=== PATIENT | female | born 1995 | race Asian ===

== ENCOUNTER → 2019-03-14 | Outpatient (CLI) | payer BC ==
--- NOTE | 2019-03-14 15:22 | RADIOLOGY REPORT (SQ) ---
EXAM DESCRIPTION: HYSTEROSALPINGOGRAM; HYSTERO CATH/INJECTION COMPLETED DATE/TIME: 03/14/2019 3:10 pm REASON FOR STUDY: N97.9 FEMALE INFERTILITY, UNSPECIFIED N97.9 FEMALE INFERTILITY, UNSPECIFIED COMPARISON: None. PROCEDURE: PRE-PROCEDURE: Procedure was explained to the patient. She was told to expect cramping du ring the procedure, and possible spotting post procedure. PROCEDURE: The cervix was prepped in sterile fashion. Under direct visual inspection, the cervix was cannulated with the hysterosalpingogram catheter and contrast injected. TECHNIQUE: Temporal fluoroscopic images acquired during the procedure stored to PACS. FLUOROSCOPY TIME: 14 seconds 3 images saved to PACS. LIMITATIONS: None. FINDINGS: UTERUS: No identified anomalies. No synechia. RIGHT ADNEXA: Normal size fallopian tube. Free spill of contrast into the peritoneal cavity. LEFT ADNEXA: Normal size fallopian tube. Free spill of contrast into the peritoneal cavity. POST PROCEDURE: The patient tolerated the procedure with no adverse effects. IMPRESSION: NORMAL HYSTEROSALPINGOGRAM. COMMENT: Study performed by and interpreted by the radiologist. Study performed by ALIGNING INSPECTOR physician. Supervision and interpretation by the radiologist. Quality ID 145: Final reports for procedures using fluoroscopy that document radiation exposure eulalio macey, or exposure time and number of fluorographic images (if radiation exposure indices are not avail able) TECHNICAL DOCUMENTATION: JOB ID: [id number] [employer]- All Rights Reserved Reading location - IP/workstation name: [email or web address]
--- NOTE | 2019-03-14 15:22 | RADIOLOGY REPORT (SQ) ---
EXAM DESCRIPTION: HYSTEROSALPINGOGRAM; HYSTERO CATH/INJECTION COMPLETED DATE/TIME: 03/14/2019 3:10 pm REASON FOR STUDY: N97.9 FEMALE INFERTILITY, UNSPECIFIED N97.9 FEMALE INFERTILITY, UNSPECIFIED COMPARISON: None. PROCEDURE: PRE-PROCEDURE: Procedure was explained to the patient. She was told to expect cramping du ring the procedure, and possible spotting post procedure. PROCEDURE: The cervix was prepped in sterile fashion. Under direct visual inspection, the cervix was cannulated with the hysterosalpingogram catheter and contrast injected. TECHNIQUE: Temporal fluoroscopic images acquired during the procedure stored to PACS. FLUOROSCOPY TIME: 14 seconds 3 images saved to PACS. LIMITATIONS: None. FINDINGS: UTERUS: No identified anomalies. No synechia. RIGHT ADNEXA: Normal size fallopian tube. Free spill of contrast into the peritoneal cavity. LEFT ADNEXA: Normal size fallopian tube. Free spill of contrast into the peritoneal cavity. POST PROCEDURE: The patient tolerated the procedure with no adverse effects. IMPRESSION: NORMAL HYSTEROSALPINGOGRAM. COMMENT: Study performed by and interpreted by the radiologist. Study performed by PHOTOGRAPHER'S ASSISTANT physician. Supervision and interpretation by the radiologist. Quality ID 145: Final reports for procedures using fluoroscopy that document radiation exposure eulalio macey, or exposure time and number of fluorographic images (if radiation exposure indices are not avail able) TECHNICAL DOCUMENTATION: JOB ID: [id number] [employer]- All Rights Reserved Reading location - IP/workstation name: [email or web address]
== END ==
LOC: RAD 13:41
PROVIDERS: ATTEND Student in an Organized Health Care Education/Training Program
DX: N97.9 Female infertility, unspecified (principal)
CPT/HCPCS: 58340; 74740